=== PATIENT | female | born 1990 | race Caucasian/White ===

== ENCOUNTER 2024-01-14 08:14 | Outpatient (REF) | payer OTHER, SELFPAY ==
[2024-01-14 08:57] LABS: Estimated Average Glucose 97 mg/dL
[2024-01-14 09:13] LABS: Cholesterol 150 mg/dL (<200); HDL Cholesterol 76 mg/dL (>40)
== END 2024-01-14 08:15 | disposition home or self-care (01) ==
LOC: HO.LAB 08:14
PROVIDERS: Visit Provider Psychiatry & Neurology Child & Adolescent Psychiatry
DX: Z79.899 Other long term (current) drug therapy (principal)
CPT/HCPCS: 36415; 82465; 83036; 83718